=== PATIENT | male | born 1955 | race Two or more races ===

== ENCOUNTER 2021-04-29 20:37 | Emergency (ER) | payer OTHER ==
[~2021-04-29] VITALS: Ht 182.9 cm; Wt 99.8 kg
[2021-04-29 20:37] VITALS: BP 116/64
[2021-04-30] MEDS ORDERED: BACITRACIN TOP OINT 1 UD PKG TOP ONE (01:15)
== END 2021-04-30 01:48 | disposition home or self-care (01) ==
LOC: ER 20:40
DX: S51.811A Laceration without foreign body of right forearm, initial encounter (principal); W26.8XXA Contact with other sharp object(s), not elsewhere classified, initial encounter; Y93.89 Activity, other specified; Y92.89 Other specified places as the place of occurrence of the external cause; Y99.8 Other external cause status
CPT/HCPCS: 12034; 73090